=== PATIENT | female | born 1955 | race Caucasian/White ===

== ENCOUNTER 2018-04-20 09:12 | Day surgery (SDC) | payer OTHER ==
[2018-04-10 11:43] VITALS: BMI 22.2
[2018-04-20] MEDS ORDERED: EPINEPHrine 1:1,000 1 MG/1 ML - 30ML VIAL (INJECTION) ONE (09:23)
[2018-04-20] MEDS ORDERED: BUPIVACAINE HCL/PF 2.5 MG/ML - 30 ML VIAL IJ ONE (09:23)
[2018-04-20] MEDS ORDERED: BUPIVACAINE HCL/EPINEPHRINE/PF 30 ML VIAL IJ ONE (09:57)
[2018-04-20] MEDS ORDERED: MIDAZOLAM HCL 2 MG/2 ML SINGLE DOSE VIAL ONE (10:25)
[2018-04-20] MEDS ORDERED: DEXAMETHASONE SOD PHOSPHATE/PF 10 MG/ML SDV ONE (10:26)
[2018-04-20] MEDS ORDERED: ROPIVACAINE HCL 0.5% 30ML VIAL ONE (10:26)
[2018-04-20] MEDS ORDERED: PROPOFOL 20 ML ONE ×2 (10:48)
[2018-04-20] MEDS ORDERED: SUCCINYLCHOLINE CHLORIDE 200 MG/10 ML VIAL ONE (10:49)
[2018-04-20] MEDS ORDERED: ONDANSETRON 4 MG/2 ML VIAL ONE (10:54)
[2018-04-20] MEDS ORDERED: ceFAZolin SODIUM 1 GM VIAL ONE (10:54)
[2018-04-20] MEDS ORDERED: DEXAMETHASONE SOD PHOSPHATE 4 MG/1 ML VIAL ONE (10:54)
[2018-04-20] MEDS ORDERED: BUPIVACAINE 0.25% /EPI 1:200,000 10 ML VIAL NR ONE (12:05)
[2018-04-20] MEDS ORDERED: oxyCODONE HCL 10 MG SUSTAINED ACTING TABLET PO ONE (12:28)
[2018-04-20] MEDS ORDERED: oxyCODONE HCL 5 MG TABLET PO PRN (12:28)
--- NOTE | 2018-04-20 12:39 | DS ---
Physical Examination Vital Signs: Vital Signs Temperature 97.7 F 04/20/18 09:34 Pulse Rate 64 04/20/18 09:34 Respiratory Rate 16 04/20/18 09:34 Blood Pressure 121/79 04/20/18 09:34 O2 Sat by Pulse Oximetry (%) 100 04/20/18 09:41 Discharge Summary Reason For Visit: ROTATOR CUFF TENDINOSIS, SUBACROMAIL BURSITIS Condition: Good - Instructions Diet, Activity, Other Instructions: Post Operative Instructions: Shoulder Arthroscopy Dr Ferny Mckenzie 1. Pain following a Shoulder Arthroscopy is variable and can be significant. Some patients will have more pain than others. You have been provided with a prescription for medication that contains a narcotic. For 24 hours you should take Tylenol (Acetaminophen) and ADvil in addition to the narcotics 2. Apply ice to the shoulder for 15 minutes every hour. You may continue this for as many days as necessary. 3. You may find sleeping on an incline (reclining chair) to be more comfortable for the first few days. 4. You must remain in your sling (for ONE WEEK) at all times except when showering. The only exception to this is to allow you to stretch your elbow a few times a day to prevent your hand and forearm from swelling. 5. You are not to use your arm to reach for anything, lift anything or carry anything until instructed otherwise. 6. You may remove the bandages in 48 hours. You may shower at that point. 7. Place band-aids on the incisions after your shower.Do not put any creams or lotions on the incision until after the sutures are removed. 8. Please call the office to schedule a visit to have your sutures removed. 9. If for any reason you believe you may have an infection or are concerned, please feel free to call me. I can be reached through our office number 24 hours a day. 10. Please call our office with any questions; we will review the surgical findings during your post-operative visit. Disposition: HOME - Home Medications Comprehensive Discharge Medication List: Ambulatory Orders Calcium 500 mg PO DAILY 07/07/14 Citalopram Hydrobromide [Celexa -] 20 mg PO DAILY 07/07/14
--- NOTE | 2018-04-20 12:39 | OP ---
Operative Note - Note: Operative Date: 04/20/18 Pre-Operative Diagnosis: right shoulder partial cuf tear, osteoarthritis Operation: right shoulder arthroscopy, decompression, rotator cuff patch repair Post-Operative Diagnosis: Same as Pre-op Surgeon: Ferny Mckenzie State Director: Meghana Smith Anesthesiologist/SLABBING MACHINE OPERATOR: Ad Horan Anesthesia: General Operative Report Dictated: Yes
[2018-04-20 13:42] VITALS: TEMP 98
[2018-04-20] MEDS ORDERED: oxyCODONE HCL 10 MG SUSTAINED ACTING TABLET ONE (13:43)
[2018-04-20 15:01] VITALS: BP 137/69; PULSE 60
--- NOTE | 2018-04-20 15:08 | SURG ---
Surgery Front Desk Host Note Front Desk Host: Meghana Smith PA-C Date of Service: 04/20/18 Diagnosis: Left knee ACL tear Procedure: Left knee revision ACL reconstruction I was present for the entirety of the operative procedure. For further detail, please refer to operative report. Visit type - Case Type Case Type: Scheduled - Emergency Emergency Visit: No - New patient This patient is new to me today: Yes Date on this admission: 04/20/18
--- NOTE | 2018-04-25 12:35 | PATH ---
Surgical Pathology Report Patient Name: CARLITOS ESTES [facility]. Rec. #: [id number] /Age/Gender: 1955 (Age: 62) / F Account: [id number] Location: COUNT INCLUDES THE [facility] AMBUL[facility] Taken: 04/20/2018 Received: 04/20/2018 Reported: 04/25/2018 Physicians: Ferny Mckenzie M.D. Specimen(s) Received RIGHT SHOULDER SHAVINGS Clinical History Right rotator cuff tendinosis and subacromial bursitis Final Diagnosis SHOULDER, RIGHT, ARTHROSCOPIC SHAVINGS: FIBROSYNOVIAL TISSUE, SCANT CARTILAGE AND SKELETAL MUSCLE. Electronically Signed Lillian Kramer M.D. Gross Description Received in formalin, labeled "right shoulder shavings," is a 2.7 x 2.5 x 0.3 cm. aggregate of luna-yellow soft tissue fragments. A medical center representative portion is submitted in one cassette. /04/23/201804/23/2018
== END 2018-04-20 14:35 | disposition home or self-care (01) ==
LOC: FASU 09:12
PROVIDERS: ATTEND Orthopaedic Surgery
PROC: 0RW Upper Joints, Revision (ICD-10-PCS; 2018-04-20)
PROC: 0RBJ4ZZ Excision of Right Shoulder Joint, Percutaneous Endoscopic Approach (ICD-10-PCS; principal; 2018-04-20 11:30)
DX: M75.111 Incomplete rotator cuff tear or rupture of right shoulder, not specified as traumatic (principal); M19.011 Primary osteoarthritis, right shoulder; M65.811 Other synovitis and tenosynovitis, right shoulder
CPT/HCPCS: 88304-TC; 94760